=== PATIENT | male | born 1950 ===

== ENCOUNTER 2018-04-09 13:51 | Emergency (ER) | payer MEDICARE ==
[2018-04-09 14:43] VITALS: BP 144/76
--- NOTE | 2018-04-09 15:07 | ED ---
Lower Extremity - HPI Summary HPI Summary: 67 yr old male with the complaint of anasarca. Onset of symptoms over weeks with unknown amount of weight gain. His left leg is wheeping and red in color. He denies SOB, CP. He is on Lasix 80mg BID. He has pior history of DVT. - History of Current Complaint Chief Complaint: UCLowerExtremity Stated Complaint: LEFT LEG SKIN COMPLAINT Time Seen by Provider: 04/09/18 14:52 Pain Intensity: 5 - Allergies/Home Medications Allergies/Adverse Reactions: Allergies Allergy/AdvReac Type Severity Reaction Status Date / Time Penicillins Allergy Rash Verified 04/09/18 14:31 Home Medications: Home Medications Cholecalciferol TAB* [Vitamin D TAB*] 2,000 units PO DAILY 04/09/18 [History Confirmed 04/09/18] Fenofibrate(NF) [Tricor(NF)] 145 mg PO DAILY 04/09/18 [History Confirmed ] Furosemide TAB* [Lasix TAB*] 80 mg PO BID 04/09/18 [History Confirmed 04/09/18] Lisinopril TAB* [Prinivil TAB*] 20 mg PO DAILY 04/09/18 [History Confirmed 04/09] Metolazone TAB* [Zaroxolyn TAB*] 2.5 mg PO SEE INSTRUCTIONS 04/09/18 [History Confirmed 04/09/18] Rivaroxaban TAB(*) [Xarelto 15 mg(*)] 15 mg PO DAILY 04/09/18 [History Confirmed 04/09/18] Tamsulosin CAP* [Flomax CAP*] 0.4 mg PO DAILY 04/09/18 [History Confirmed ] PMH/Surg Hx/FS Hx/Imm Hx Cardiovascular History: Reports: Hx Hypertension - Cancer History Cancer Type, Location and Year: colon (removed) - Surgical History Surgery Procedure, Year, and Place: colon. laproscopic kidney stones Infectious Disease History: No Infectious Disease History: Denies: Traveled Outside the [place] in Last 30 Days - Family History Known Family History: Positive: Hypertension - Social History Occupation: Retired Alcohol Use: None Substance Use Type: Reports: None Smoking Status (MU): Former Smoker Type: Smokeless Tobacco Review of Systems Constitutional: Negative Negative: Chest Pain Negative: Shortness Of Breath Positive: Edema - both legs with redness and wheeping from the left leg. All Other Systems Reviewed And Are Negative: Yes Physical Exam Triage Information Reviewed: Yes Vital Signs On Initial Exam: Initial Vitals Temp Pulse Resp BP Pulse Ox 98.4 F 95 20 144/76 96 04/09/18 14:24 04/09/18 14:24 04/09/18 14:24 04/09/18 14:24 04/09/18 14:24 Vital Signs Reviewed: Yes Appearance: Positive: Well-Appearing, No Pain Distress Skin: Positive: Other - cellulitis appearance to the left foot with some maggots that came off of the surface of the skin over the lateral malleolus area. There is yellow color wheeping from the leg. Eyes: Positive: EOMI ENT: Positive: Normal ENT inspection Neck: Positive: Nontender Respiratory/Lung Sounds: Positive: Clear to Auscultation, Breath Sounds Present. Negative: Rales Cardiovascular: Positive: RRR. Negative: Murmur Abdomen Description: Positive: Other: - non tender, distended Musculoskeletal: Positive: Edema Left - with cellulitis and wheeping from skin of yellow clear drainage. Ulcer lateral lower leg near malleolus. Chronic skin changes from stasis. he does have DP pulse present and cap refill., Edema Right Neurological: Positive: Sensory/Motor Intact, Alert, Oriented to Person Place, Time, CN Intact II-III Psychiatric: Positive: Normal - [place] Coma Scale Best Eye Response: 4 - Spontaneous Best Motor Response: 6 - Obeys Commands Best Verbal Response: 5 - Oriented Coma Scale Total: 15 Diagnostics - Vital Signs Vital Signs Temp Pulse Resp BP Pulse Ox 04/09/18 14:24 98.4 F 95 20 144/76 96 - Laboratory Lab Statement: Any lab studies that have been ordered have been reviewed, and results considered in the medical decision making process. Lower Extremity Course/Dx - Course Course Of Treatment: 67 yr old male with extensive anasarca and cellulitis to the left leg. He drove himself here. he is no distress from Cardiopulmonary standpoint. He wants to drive himself to the ER where he has been referred for further lab testing, treatment, diuresis, and antibiotics. - Diagnoses Provider Diagnoses: Anasarca, Cellulitis of left leg Discharge - Sign-Out/Discharge Documenting (check all that apply): Patient Departure All imaging exams completed and their final reports reviewed: No Studies - Discharge Plan Condition: Good Disposition: HOME-RECOMMEND TO ED Patient Education Materials: Cellulitis (ED), Hypertension (ED), Edema (ED) Referrals: Jovi Reyna [Primary Care Provider] - Additional Instructions: YOU NEED TO GO TO THE ER IMMEDIATELY UPON LEAVING HERE. - Billing Disposition and Condition Condition: GOOD Disposition: Home-Recommend to ED
== END 2018-04-09 15:15 | disposition home health service (06) ==
LOC: UCCORT 13:51
DX: R60.1 Generalized edema (principal); L03.116 Cellulitis of left lower limb; Z86.718 Personal history of other venous thrombosis and embolism; Z88.0 Allergy status to penicillin; I10 Essential (primary) hypertension; Z79.01 Long term (current) use of anticoagulants; Z87.891 Personal history of nicotine dependence
CPT/HCPCS: 99212; G0463